=== PATIENT | male | born 1970 | race Caucasian/White ===

== ENCOUNTER 2024-08-27 16:05 | Emergency (ER) | payer BC ==
[~2024-08-27] VITALS: Ht 177.8 cm; Wt 93.0 kg
[2024-08-27] MEDS ORDERED: Acetaminophen/Oxycodone 5 MG/325 MG TABLET PO ONE (16:40)
[2024-08-27] MEDS ORDERED: Tdap Vaccine 0.5 ML SYR (Adult Vaccine) IM ONE (16:40)
[2024-08-27] MEDS ORDERED: CEPHALEXIN500 M1 PO (17:17)
[2024-08-27] MEDS ORDERED: PERCOCET 5-3251 EACH PO (17:17)
== END 2024-08-27 18:04 | disposition home or self-care (01) ==
LOC: ED 16:05
DX: S52.502A Unspecified fracture of the lower end of left radius, initial encounter for closed fracture (principal); S52.602A Unspecified fracture of lower end of left ulna, initial encounter for closed fracture; S00.211A Abrasion of right eyelid and periocular area, initial encounter; R22.32 Localized swelling, mass and lump, left upper limb; W20.8XXA Other cause of strike by thrown, projected or falling object, initial encounter; Y93.89 Activity, other specified; Y92.89 Other specified places as the place of occurrence of the external cause; Y99.8 Other external cause status

== ENCOUNTER → 2024-09-03 | Outpatient (CLI) | payer BC ==
[~2024-09-03] MED LIST: CEPHALEXIN500 M1 PO; PERCOCET 5-3251 EACH PO
== END | disposition home or self-care (01) ==
LOC: ORTHO 02:18
PROVIDERS: ATTEND Orthopaedic Surgery
DX: S52.592D Other fractures of lower end of left radius, subsequent encounter for closed fracture with routine healing (principal); S52.235D Nondisplaced oblique fracture of shaft of left ulna, subsequent encounter for closed fracture with routine healing; M79.89 Other specified soft tissue disorders; X58.XXXD Exposure to other specified factors, subsequent encounter

== ENCOUNTER → 2024-09-10 | Outpatient (CLI) | payer BC | END | disposition home or self-care (01) | LOC: ORTHO 02:20 | PROVIDERS: ATTEND Orthopaedic Surgery | DX: S52.235D Nondisplaced oblique fracture of shaft of left ulna, subsequent encounter for closed fracture with routine healing (principal); M79.89 Other specified soft tissue disorders; X58.XXXD Exposure to other specified factors, subsequent encounter ==

== ENCOUNTER → 2024-09-17 | Outpatient (CLI) | payer BC | END | disposition home or self-care (01) | LOC: ORTHO 01:12 | PROVIDERS: ATTEND Orthopaedic Surgery | DX: S52.235D Nondisplaced oblique fracture of shaft of left ulna, subsequent encounter for closed fracture with routine healing (principal); S52.592D Other fractures of lower end of left radius, subsequent encounter for closed fracture with routine healing; X58.XXXD Exposure to other specified factors, subsequent encounter ==

== ENCOUNTER → 2024-10-08 | Outpatient (CLI) | payer BC | END | disposition home or self-care (01) | LOC: ORTHO 05:09 | PROVIDERS: ATTEND Orthopaedic Surgery | DX: S52.235D Nondisplaced oblique fracture of shaft of left ulna, subsequent encounter for closed fracture with routine healing (principal); X58.XXXD Exposure to other specified factors, subsequent encounter ==